=== PATIENT | female | born 1955 | race Caucasian/White ===

== ENCOUNTER 2020-01-21 16:04 | Outpatient (REF) | payer SELFPAY ==
[2020-01-21 19:02] LABS: Chol HDL Ratio 3.74 mg/dL (0.0-4.40); Cholesterol 176 mg/dL (0-200); Glucose 122 mg/dL (65-115); HDL Cholesterol 47 mg/dL (60-100); LDL Cholesterol Calculated 99 mg/dL (50-129); LDL HDL Ratio 2.11 RATIO (0.00-3.22); Triglycerides 148 mg/dL (0-150)
[2020-01-21 21:08] LABS: Estmated Average Glucose 137; Hemoglobin A1C 6.4 % (4.0-6.0)
== END 2020-01-21 16:05 | disposition home or self-care (01) ==
LOC: LAB 16:04
PROVIDERS: Family Provider Nurse Practitioner Family; PCP Nurse Practitioner Family; Visit Provider Dermatology
DX: Z13.9 Encounter for screening, unspecified (principal)
CPT/HCPCS: 80061; 82947; 83036

== ENCOUNTER 2020-06-07 09:25 | Outpatient (CLI) | payer MEDICARE, SELFPAY ==
--- NOTE | 2020-06-07 09:37 | US_ITS ---
WS: [id number] ULTRASOUND ABDOMEN CLINICAL INFORMATION: FATTY LIVER/STEATOSIS OF LIVER COMPARISON: None. FINDINGS: Liver Size: Enlarged Craniocaudal length: 17.1 cm. Echogenicity: Coarse Surface nodularity: None. Mass (size and location): None. Bile ducts Intrahepatic ducts: Normal. Common bile duct diameter: 0.5 cm. Gallbladder Normal. Gallstones: None. Gallbladder sludge: None. Gallbladder wall thickening: None. Pericholecystic fluid: None. Sonographic Goetz sign: Absent. Pancreas Normal as visualized. Spleen Splenomegaly: None. Craniocaudal length: 10.8 cm. Right kidney: Normal. Hydronephrosis: None. Size: 11.7 cm x 5.4 cm x 5.5 cm Left kidney: Normal. Hydronephrosis: None. Size: 12.3 cm x 4.2 cm x 5.8 cm. Abdominal aorta and IVC Visualized portions are normal. Ascites: None. US/US abdomen complete* [id number] IMPRESSION: 1. Coarse hepatic echogenicity consistent with fatty infiltration. Mild hepato megaly. 2. Gallbladder is normal. No significant gallbladder wall thickening. 3. Normal common bile duct. 4. No hydronephrosis in either kidney.
== END 2020-06-07 09:26 | disposition home or self-care (01) ==
LOC: RAD 09:31
PROVIDERS: PCP Nurse Practitioner Family; Visit Provider Nurse Practitioner Family
DX: K76.0 Fatty (change of) liver, not elsewhere classified (principal); R16.0 Hepatomegaly, not elsewhere classified
CPT/HCPCS: 76700

== ENCOUNTER 2021-04-22 12:43 | Outpatient (CLI) | payer MEDICARE, SELFPAY ==
--- NOTE | 2021-04-22 12:50 | MM_ITS ---
WS: [id number] ADDITIONAL VIEWS LEFT DIGITAL MAMMOGRAM WITH CAD HISTORY: ABNORMAL MAMMO COMPARISON: 03/16/2021 and 08/08/2012 Technique: ML view. Magnification views LEFT CC, ML and MLO. Breast composition: The breasts are heterogeneously dense, which may obscure small masses. There are several benign calcifications throughout the breast. There is a cluster of 3 calcifications near 9:0 0 axis posteriorly. These are round calcifications and similar size. MM/[place] [id number] IMPRESSION: BI-RADS: 3-Probably Benign FOLLOW UP: 6 Month Follow-up Recommend 6 month follow-up LEFT breast calcifications to document continued st ability.
== END 2021-04-22 12:44 | disposition home or self-care (01) ==
LOC: RADSHAW 12:48
PROVIDERS: PCP Nurse Practitioner Family; Visit Provider Nurse Practitioner Family
DX: R92.8 Other abnormal and inconclusive findings on diagnostic imaging of breast (principal); R92.1 Mammographic calcification found on diagnostic imaging of breast
CPT/HCPCS: 77065

== ENCOUNTER 2021-10-26 10:03 | Outpatient (CLI) | payer MEDICARE, SELFPAY ==
--- NOTE | 2021-10-26 10:10 | MM_ITS ---
WS: [id number] Left breast diagnostic digital mammogram, 10/26/2021 Clinical Data: 6 MO F/U OTHER ABNORMAL/INCONCLUSIVE FINDING ON DIAG IMAGING Comparison: 04/22/2021, 03/16/2021, 08/08/2012, 08/02/2011, 07/31/2008. Findings: The left breast shows heterogeneous density. There are scattered calcifications in the left breast. T here are no secondary signs of carcinoma. The breast parenchymal pattern has not changed and there is no change in the calcifications of the left breast. MM/[place] [id number] Impression: 1. Negative left breast mammogram. 2. Return to annual screening mammograms. BIRADS: 2-Benign FOLLOW UP: See Report The CAD motor checker was used.
== END 2021-10-26 10:04 | disposition home or self-care (01) ==
LOC: RADSHAW 10:07
PROVIDERS: PCP Nurse Practitioner Family; Visit Provider Nurse Practitioner Family
DX: R92.8 Other abnormal and inconclusive findings on diagnostic imaging of breast (principal)
CPT/HCPCS: 77065

== ENCOUNTER → 2022-03-09 10:13 | Outpatient (BNVA) | payer MEDICARE, SELFPAY | PROVIDERS: PCP Family Medicine; Visit Provider Family Medicine | DX: K76.0 Fatty (change of) liver, not elsewhere classified (principal); I10 Essential (primary) hypertension; E78.5 Hyperlipidemia, unspecified; K21.9 Gastro-esophageal reflux disease without esophagitis; M62.838 Other muscle spasm; R73.03 Prediabetes | CPT/HCPCS: 80053; 80061; 83036; 84443 ==

== ENCOUNTER → 2022-08-09 10:06 | Outpatient (BNVA) | payer MEDICARE, SELFPAY | PROVIDERS: PCP Family Medicine; Visit Provider Nurse Practitioner Family | DX: R30.0 Dysuria (principal); N39.0 Urinary tract infection, site not specified; R31.9 Hematuria, unspecified | CPT/HCPCS: 81000 ==

== ENCOUNTER 2023-02-27 09:01 | Outpatient (CLI) | payer MEDICARE, SELFPAY ==
--- NOTE | 2023-02-27 09:29 | MM_ITS ---
WS: [id number] BILATERAL SCREENING DIGITAL TOMOSYNTHESIS MAMMOGRAM WITH CAD HISTORY: SCREENING COMPARISON: 10/26/2021, 03/16/2021 and 08/08/2012 Bilateral CC and MLO views with tomosynthesis and synthetic mammography submitted. Computer aided det ection analyzed. Breast composition: The breasts are heterogeneously dense, which may obscure small masses. No suspici ous masses, microcalcifications or architectural distortion. Benign bilateral calcifications. MM/[place] [id number] IMPRESSION: BI-RADS: 2-Benign FOLLOW UP: 1 Year Follow-up
== END 2023-02-27 09:02 | disposition home or self-care (01) ==
PROVIDERS: PCP Family Medicine; Visit Provider Family Medicine
DX: Z12.31 Encounter for screening mammogram for malignant neoplasm of breast (principal)
CPT/HCPCS: 77063; 77067

== ENCOUNTER → 2023-03-07 13:50 | Outpatient (BNVA) | payer MEDICARE, SELFPAY | PROVIDERS: PCP Family Medicine; Visit Provider Nurse Practitioner | DX: M54.9 Dorsalgia, unspecified (principal) | CPT/HCPCS: 80053; 81000; 87086 ==

== ENCOUNTER 2023-05-14 10:01 | Outpatient (CLI) | payer MEDICARE, SELFPAY ==
--- NOTE | 2023-05-14 10:15 | US_ITS ---
WS: [id number] ABDOMINAL ULTRASOUND LIMITED REASON FOR EXAM: R10.11 - Right upper quadrant pain COMPARISON: 06/07/2020 ORDER DATE: 05/14/2023 10:31 AM TECHNIQUE: Grayscale and Doppler ultrasound examination of the abdomen. FINDINGS: Pancreas: Unremarkable Abdominal aorta and IVC: Unremarkable Liver: Liver measures 16.8 cm in length. Normal echotexture Gallbladder: Gallbladder wall thickness measures 0.2 mm. No evidence of calculi Right kidney: Right kidney measures 11.2 cm x 6.5 cm x 4.7 cm. Right kidney cortex measures 1.1 cm. N o focal change US/US gall bladder [id number] IMPRESSION: Mild hepatic steatosis the exam from 06/07/2020 seems to have cleared. No acute change.
== END 2023-05-14 10:02 | disposition home or self-care (01) ==
PROVIDERS: PCP Family Medicine; Visit Provider Family Medicine
DX: R10.11 Right upper quadrant pain (principal); K76.0 Fatty (change of) liver, not elsewhere classified
CPT/HCPCS: 76705

== ENCOUNTER → 2023-06-05 09:36 | Outpatient (BNVA) | payer MEDICARE, SELFPAY | PROVIDERS: PCP Family Medicine; Visit Provider Surgery | DX: K21.9 Gastro-esophageal reflux disease without esophagitis (principal); R10.11 Right upper quadrant pain | CPT/HCPCS: 99203 ==

== ENCOUNTER 2023-06-07 10:27 | Day surgery (SDC) | payer MEDICARE, SELFPAY ==
[2023-06-06 09:06] VITALS: BMI 26.6
[2023-06-07 11:08] VITALS: BP 153/86; PULSE 89; RESP 16; TEMP 36.6; O2SAT 95
[2023-06-07] MEDS: sodium chloride 0.9% 1,000 ML 30 ML IV (11:20)
--- NOTE | 2023-06-07 11:23 | ANES.PREANE2 ---
Pre-Anesthetic Assessment Height/Weight: Height 1.68 m Weight 74.843 kg Temp Pulse Resp BP Pulse Ox O2 Del Method 97.9 F 89 16 153/86 95 Room Air 06/07/23 11:08 06/07/23 11:08 06/07/23 11:08 06/07/23 11:08 06/07/23 11:08 06/07/23 11:08 Operation Date: 06/07/23 11:45 Proposed Procedures p EGD 08445, K21.9,R10.11,(Not Applicable) - Vivek Hughes DO Familial anesthetic complications: None Was Beta Nora taken within 24 hours: N/A Was Clonidine taken within 24 hours: N/A Last intake: Intake Last Liquid Date 06/06/23 Last Liquid Time 21:00 Last Solid Date 06/06/23 Last Solid Time 21:00 Social No alcohol and No tobacco Exam alert, oriented x 3, clear to auscultation bilaterally and regular rate & rhythm Airway Mallampati: Class II Dentition: false CV/HEM Hypertension GI Gastroesophageal Reflux Disease Metabolic Hyperlipidemia Anesthetic Plan ASA status: 3 Anesthesia: MAC Risk of > 500 ml blood loss (7ml/kg in children): No Medications/Allergies Home Medications Medication Instructions Recorded Confirmed Last Taken Type cholecalciferol (vitamin D3) 125 125 mcg PO DAILY 03/09/22 06/07/23 06/06/23 History mcg (5,000 unit) capsule milk thistle 150 mg capsule 150 mg PO QPM 03/09/22 06/07/23 06/06/23 History amlodipine 5 mg tablet 5 mg PO DAILY #90 tabs 01/10/23 06/07/23 06/07/23 Rx levocetirizine 5 mg tablet (Xyzal) 5 mg PO .nightly 30 days #30 tabs 01/10/23 06/07/23 06/06/23 Rx lisinopril 10 mg tablet 10 mg PO DAILY #90 tabs 01/10/23 06/07/23 06/06/23 Rx pantoprazole 40 mg tablet,delayed 40 mg PO DAILY 90 days #90 tabs 01/10/23 06/07/23 06/06/23 Rx release (Protonix) semaglutide 0.25 mg or 0.5 mg (2 0.25 mg (0.4 mL) SUBCUT .WEEKLY #3 04/11/23 06/06/23 06/03/23 Rx mg/3 mL) subcutaneous pen injector mL (Ozempic) calcium 500 mg tablet 1,000 mg PO DAILY 06/06/23 06/07/23 06/06/23 History rosuvastatin 20 mg tablet 20 mg PO QPM 06/06/23 06/07/23 06/06/23 History Allergies Allergy/AdvReac Type Severity Reaction Status Date / Time Opioids - Morphine Analogues Allergy Intermediate ADR-Agitate Verified 06/06/23 09:00 d Current Medications Generic Name Dose Route Start Last Admin Trade Name Freq PRN Reason Stop Dose Admin Sodium Chloride 1,000 mls @ 30 mls/hr 06/07/23 10:45 06/07/23 11:20 Sodium Chloride 0.9% IV 06/08/23 10:44 30 mls/hr .Q24H XANDER Administration PFSH Anesthesia Surgical History (Updated 06/05/23 @ 10:36 by Vivek Hughes DO) History of ankle surgery History of back surgery Hx of colonoscopy no polyps, Aug 2022 Hx of hysterectomy Social History Smoking and tobacco status: never smoked Data Anesthesia Cardiac Studies: No Data to Display
--- NOTE | 2023-06-07 12:06 | W.PM.OPSUD ---
Surgery/Procedure H&P Update DATE OF PROCEDURE: June 07, 2023 DATE H&P PERFORMED: 06/05/23 H&P UPDATE INFORMATION: I have reviewed H&P completed within last 30 days, I have examined patient prior to procedure and No changes to prior documentation PLANNED PROCEDURE: Operation Date: 06/07/23 11:45 Proposed Procedures p EGD 11166, K21.9,R10.11,(Not Applicable) - Vivek Hughes, DO
[2023-06-07 12:45] VITALS: BP 114/72; PULSE 86; RESP 16; TEMP 36.4; O2SAT 98
--- NOTE | 2023-06-07 13:00 | ANE.PACU2 ---
Inpatient post-anesthesia follow up: Airway intact: Yes Vital signs: Temperature 97.5 F Pulse Rate 86 Respiratory Rate 16 Blood Pressure 114/72 Pulse Oximetry 98 Oxygen Delivery Me thod Room Air Oxygen Flow Rate Fraction of Inspir ed Oxygen Hydration adequate: Yes Nausea and vomiting: No Pain level: 1 Mental status: Baseline
[2023-06-07 13:04] VITALS: BP 112/72; PULSE 80; RESP 18; O2SAT 97
== END 2023-06-07 13:09 | disposition home or self-care (01) ==
PROVIDERS: PCP Family Medicine; Visit Provider Surgery
PROC: 0DJ08ZZ Inspection of Upper Intestinal Tract, Via Natural or Artificial Opening Endoscopic (ICD-10-PCS; CPT 43235; principal; 2023-06-07 11:45)
DX: R10.11 Right upper quadrant pain (principal); K21.9 Gastro-esophageal reflux disease without esophagitis; K31.A0 Gastric intestinal metaplasia, unspecified; K44.9 Diaphragmatic hernia without obstruction or gangrene
CPT/HCPCS: 43239; 88305; J2704; J7030

== ENCOUNTER → 2023-06-20 15:58 | Outpatient (BNVA) | payer MEDICARE, SELFPAY | PROVIDERS: PCP Family Medicine; Visit Provider Surgery | DX: R10.11 Right upper quadrant pain (principal) | CPT/HCPCS: 99212 ==

== ENCOUNTER 2023-06-29 09:38 | Outpatient (CLI) | payer MEDICARE, SELFPAY ==
--- NOTE | 2023-06-29 10:00 | NM_ITS ---
WS: [id number] NUCLEAR MEDICINE HIDA SCAN WITH GALLBLADDER EJECTION FRACTION HISTORY: RUQ pain COMPARISON: RIGHT upper quadrant ultrasound 05/14/2023 TECHNIQUE: The patient was intravenously injected with 7.7 mCi of TC99m Mebrofenin. Immediate imaging over the right upper quadrant was followed by 5 minute image and additional images for a total of 60 minutes. Normal uptake of radiotracer throughout the liver. Activity identified in the gallbladder at 15 minutes and well distended by 60 minutes. Activity in the proximal small bowel was seen by 50 minutes. Good washout of the radiotracer from the liver by 60 minutes. The patient then drank 8 ounces of Ensure Plus. Ejection fraction at 60 minutes was 92%. Normal GB ej ection fraction is 35-75%. Post fatty meal symptoms: None. NM/NM hepatobiliary w phar* [id number] IMPRESSION: 1. Normal HIDA scan. 2. Normal gallbladder ejection fraction.
== END 2023-06-29 09:39 | disposition home or self-care (01) ==
LOC: RAD 09:38
PROVIDERS: PCP Family Medicine; Visit Provider Surgery
DX: R10.11 Right upper quadrant pain (principal)
CPT/HCPCS: 78227; A9537

== ENCOUNTER → 2023-08-07 10:33 | Outpatient (BNVA) | payer MEDICARE, SELFPAY | PROVIDERS: PCP Family Medicine; Visit Provider Surgery | DX: Z09 Encounter for follow-up examination after completed treatment for conditions other than malignant neoplasm (principal) | CPT/HCPCS: 99213 ==

== ENCOUNTER → 2024-04-29 08:41 | Outpatient (BNVA) | payer MEDICARE, SELFPAY | PROVIDERS: PCP Nurse Practitioner Family; Visit Provider Nurse Practitioner Family | DX: R73.03 Prediabetes (principal); E55.9 Vitamin D deficiency, unspecified; K76.0 Fatty (change of) liver, not elsewhere classified; Z79.899 Other long term (current) drug therapy; I10 Essential (primary) hypertension; D64.9 Anemia, unspecified | CPT/HCPCS: 80053; 80061; 81003; 82306; 82728; 83036; 83550; 83735; 84443; 85025 ==

== ENCOUNTER → 2024-05-16 11:21 | Outpatient (BNVA) | payer MEDICARE, SELFPAY | PROVIDERS: PCP Nurse Practitioner Family; Visit Provider Surgery | DX: K80.50 Calculus of bile duct without cholangitis or cholecystitis without obstruction | CPT/HCPCS: 99214 ==

== ENCOUNTER → 2024-06-05 09:30 | Outpatient (BNVA) | payer MEDICARE, SELFPAY | PROVIDERS: PCP Nurse Practitioner Family; Visit Provider Surgery | DX: Z90.49 Acquired absence of other specified parts of digestive tract (principal); Z98.890 Other specified postprocedural states | CPT/HCPCS: 99024 ==

== ENCOUNTER → 2024-08-01 09:12 | Outpatient (BNVA) | payer MEDICARE, SELFPAY | PROVIDERS: PCP Nurse Practitioner Family; Visit Provider Nurse Practitioner Family | DX: E55.9 Vitamin D deficiency, unspecified (principal); D64.9 Anemia, unspecified; E56.9 Vitamin deficiency, unspecified; K76.0 Fatty (change of) liver, not elsewhere classified | CPT/HCPCS: 80053; 82306; 82607; 82746; 83540; 83735; 84207; 84425; 84590; 85025 ==

== ENCOUNTER → 2025-01-08 09:09 | Outpatient (BNVA) | payer MEDICARE, SELFPAY | PROVIDERS: PCP Nurse Practitioner Family; Visit Provider Nurse Practitioner Family | DX: E11.9 Type 2 diabetes mellitus without complications (principal); K76.0 Fatty (change of) liver, not elsewhere classified; E55.9 Vitamin D deficiency, unspecified; K21.9 Gastro-esophageal reflux disease without esophagitis; Z78.0 Asymptomatic menopausal state; Z90.49 Acquired absence of other specified parts of digestive tract | CPT/HCPCS: 85025 ==

== ENCOUNTER → 2025-01-22 09:17 | Outpatient (BNVA) | payer MEDICARE, SELFPAY | PROVIDERS: PCP Nurse Practitioner Family; Visit Provider Nurse Practitioner Family | DX: I10 Essential (primary) hypertension (principal); K76.0 Fatty (change of) liver, not elsewhere classified; E11.9 Type 2 diabetes mellitus without complications; E55.9 Vitamin D deficiency, unspecified; K21.9 Gastro-esophageal reflux disease without esophagitis; Z90.49 Acquired absence of other specified parts of digestive tract; Z78.0 Asymptomatic menopausal state; D64.9 Anemia, unspecified | CPT/HCPCS: 80053; 80061; 81003; 82306; 83036; 84443; 84630; 85025 ==

== ENCOUNTER → 2025-07-14 08:49 | Outpatient (BNVA) | payer MEDICARE, SELFPAY | PROVIDERS: PCP Nurse Practitioner Family; Visit Provider Nurse Practitioner Family | DX: D64.9 Anemia, unspecified (principal); K76.0 Fatty (change of) liver, not elsewhere classified | CPT/HCPCS: 80053; 82728; 83550; 85025 ==